=== PATIENT | female | born 1955 | race Caucasian/White ===

== ENCOUNTER 2019-01-30 22:20 | Emergency (ER) | payer BC ==
[~2019-01-30] VITALS: Ht 172.7 cm; Wt 72.7 kg
[2019-01-30 22:49] VITALS: BP 157/90
[2019-01-30] MEDS ORDERED: ketorolac trometh inj. 60 MG/2 ML VIAL IM ONE (23:00)
[2019-01-30] MEDS ORDERED: HYDROcodone/acetaminophen 5mg/325mg tablet PO ONE (23:00)
[2019-01-30] MEDS ORDERED: HYDR-4384 PO (23:01)
[2019-01-30] MEDS ORDERED: ondansetron 4mg rapidly disintigrating tab PO ONE (23:05)
== END 2019-01-30 23:39 | disposition home or self-care (01) ==
LOC: ER 22:21
DX: S42.292A Other displaced fracture of upper end of left humerus, initial encounter for closed fracture (principal); Z88.2 Allergy status to sulfonamides; Z88.8 Allergy status to other drugs, medicaments and biological substances; Z79.899 Other long term (current) drug therapy; W01.0XXA Fall on same level from slipping, tripping and stumbling without subsequent striking against object, initial encounter; Y93.89 Activity, other specified; Y92.89 Other specified places as the place of occurrence of the external cause; Y99.8 Other external cause status
CPT/HCPCS: 73030; 96372; 99284; J1885